=== PATIENT | male | born 1985 | race Caucasian/White ===

== ENCOUNTER 2021-08-26 14:20 | Emergency (ER) | payer SELFPAY ==
[~2021-08-26] VITALS: Ht 182.9 cm; Wt 104.3 kg
[2021-08-26] MEDS ORDERED: LET SOLN TOPICAL 8 ML UDC TP ONE (15:14)
--- NOTE | 2021-08-26 15:15 | NUR ---
dr box at bedside for eval.
--- NOTE | 2021-08-26 16:45 | NUR ---
lip laceration repaired by thelma salcido. Patient discharged to home in stable condition. Written and verbal after care instructions given. Patient verbalizes understanding of instruction.
[2021-08-26 17:04] VITALS: BP 145/92
== END 2021-08-26 16:50 | disposition home or self-care (01) ==
LOC: ER 14:22
DX: S01.511A Laceration without foreign body of lip, initial encounter (principal); F90.9 Attention-deficit hyperactivity disorder, unspecified type; V03.99XA Pedestrian with other conveyance injured in collision with car, pick-up truck or van, unspecified whether traffic or nontraffic accident, initial encounter; Y93.89 Activity, other specified; Y92.89 Other specified places as the place of occurrence of the external cause; Y99.8 Other external cause status